=== PATIENT | female | born 1985 ===

== ENCOUNTER 2019-09-08 13:29 | Outpatient (CLI) | payer SELFPAY ==
[2019-09-08 13:57] VITALS: BP 110/71
[2019-09-08 15:09] LABS: Bacteria,Urine 1+ /HPF (Negative); Bilirubin,Urine NEG (Negative); Blood,Urine NEG (Negative); Color,Urine Yellow (Yellow); Mucus,Urine FEW /HPF; Protein,Urine <15 mg/dL mg/dL (Negative); Urobilinogen,Urine < 2.0 mg/dL (<2.0)
--- NOTE | 2019-09-08 16:20 | Event Note ---
Date: 09/08/19 Patient complains of PPROM SIMON 8.6 BPP 8/8 SSE: negative pooling no amniotic fluid on cindi pad. Cindi pad dry SVE: no amniotic fluid noted, +ve vaginal discharge cervix: closed, long. high FHT: appropriate and reassuring for gestational age plan to d/c home with fup clinic one week. Repeat US/SIMON/BPP chorio and PTL precautions given Maternal/ status reassuring Wily Rosen MD
--- NOTE | 2019-09-09 05:12 | Ultrasound Report ---
ULTRASOUND BIOPHYSICAL PROFILE ULTRASOUND OB LIMITED INDICATION: SIMON TECHNIQUE: Transabdominal ultrasound imaging. COMPARISON: None FINDINGS: breathing movement = 2 Gross body movement = 2 tone = 2 Qualitative amniotic fluid volume = 2 Total biophysical score = 8/8 Amniotic fluid index is 8.6 cm. Presentation is cephalic. heart rate is 150 beats per minute. IMPRESSION: biophysical profile equals 8/8. Signer Name: Mikhail Melgar Jr, MD Signed: 09/08/2019 3:39 PM Workstation Name: [id number]
== END 2019-09-08 16:43 | disposition home or self-care (01) ==
LOC: TRG 13:29 → APU 13:31 → TRG 16:43
PROVIDERS: ATTEND Obstetrics & Gynecology
DX: O42.913 Preterm premature rupture of membranes, unspecified as to length of time between rupture and onset of labor, third trimester (principal); Z3A.34 34 weeks gestation of pregnancy
CPT/HCPCS: 59025; 76815; 76819; 81001

== ENCOUNTER 2020-03-08 19:01 | Emergency (ER) | payer SELFPAY ==
--- NOTE | 2020-03-08 19:32 | Emergency Department Report ---
Blank Doc - Documentation Documentation: 34-year-old female that presents with upper abdominal pain with n/v. Stated is 6 weeks . Denies any vaginal bleeding. This initial assessment/diagnostic orders/clinical plan/treatment(s) is/are subject to change based on patient's health status, clinical progression and re- assessment by fellow clinical providers in the ED. Further treatment and workup at subsequent clinical providers discretion. Patient/guardians urged not to elope from the ED as their condition may be serious if not clinically assessed and managed. Initial orders include: 1- Patient sent to [facility] for further evaluation and treatment 2- labs 3- UA 4- US OB AND ABD
[2020-03-08 20:35] LABS: Alanine Aminotransferase 406 units/L (7-56); Albumin 3.8 g/dL (3.9-5); Blood Urea Nitrogen 7 mg/dL (7-17); Calcium 9.5 mg/dL (8.4-10.2); Hemolysis Index 10
[2020-03-08 20:36] LABS: Basophils % (Auto) 0.3 % (0.0-1.8); Eosinophils # (Auto) 0.1 K/mm3 (0.0-0.4); Eosinophils % (Auto) 0.7 % (0.0-4.3); Hematocrit 38.9 % (30.3-42.9); Hemoglobin 13.4 gm/dl (10.1-14.3); Lymphocytes # (Auto) 2.1 K/mm3 (1.2-5.4); Lymphocytes % (Auto) 21.9 % (13.4-35.0); Mean Corpuscular HGB Conc 35 % (30-34); Mean Corpuscular Volume 90 fl (79-97); Monocytes # (Auto) 0.4 K/mm3 (0.0-0.8); Platelet Count 231 K/mm3 (140-440); Red Blood Count 4.33 M/mm3 (3.65-5.03); Red Cell Distribution Width 14.7 % (13.2-15.2)
[2020-03-08 20:39] LABS: BUN/Creatinine Ratio 18
--- NOTE | 2020-03-08 22:20 | Ultrasound Report ---
ULTRASOUND ABDOMEN, COMPLETE INDICATION / CLINICAL INFORMATION: abd pain. COMPARISON: None available. FINDINGS: PANCREAS: Not well visualized secondary to overlying bowel gas. ABDOMINAL AORTA: No significant abnormality. IVC: No significant abnormality. LIVER: No significant abnormality. GALLBLADDER: Multiple echogenic foci are seen within the gallbladder neck. There is no significant ga llbladder wall thickening or pericholecystic edema. BILE DUCTS: No significant abnormality. Common bile duct measures 8 mm. KIDNEYS: Right: The right kidney measures 11.5 cm in length and is normal in echogenicity. Left: The left kidney measures 11.6 cm in length and is normal in echogenicity. SPLEEN: Spleen measures 10.5 cm in length and is normal in echogenicity. FREE FLUID: None. ADDITIONAL FINDINGS: None. IMPRESSION: 1. Cholelithiasis without sonographic evidence of cholecystitis. 2. Mildly dilated common bile duct. Signer Name: Clemente Davis MD Signed: 03/08/2020 10:16 PM Workstation Name: [id number]
--- NOTE | 2020-03-08 22:24 | Ultrasound Report ---
ULTRASOUND OBSTETRIC INDICATION / CLINICAL INFORMATION: abd pain. Clinical Gestational Age (GA): 10.5 weeks.days TECHNIQUE: Transabdominal. COMPARISON: None available. FINDINGS: GESTATIONAL SAC: Well-defined oval shape and intrauterine in location. Gestational sac diameter measu res 5.6 cm, corresponding to a gestational age of 11 weeks, 4 days. EMBRYO/FETUS: No significant abnormality. - [place]-Rump Length = 3.7 cm = 10.5 weeks.days - Heart Rate, beats per minute (if present) = 168 ADNEXA: Maternal ovaries were not visualized on this examination. FREE FLUID: None. ADDITIONAL FINDINGS: None. IMPRESSION: 1. Single, living intrauterine with estimated sonographic age of 11.1 weeks.days. Signer Name: Clemente Davis MD Signed: 03/08/2020 10:20 PM Workstation Name: [id number]
[2020-03-08 22:27] VITALS: BP 114/76
[2020-03-09] MEDS ORDERED: METOCLOPRAMIDE 10 MG/2 ML INJ ONE (00:59)
[2020-03-09] MEDS ORDERED: SODIUM CHLORIDE 0.9% 1000 ML 1,000 ML ONE (00:59)
[2020-03-09] MEDS ORDERED: diphenhydrAMINE 50 MG/ML VIAL ONE (00:59)
[2020-03-09] MEDS ORDERED: oxyCODONE /ACETAMINOPHEN 5-325MG TAB ONE (04:49)
[2020-03-09] MEDS ORDERED: ONDANSETRON 4 MG ODT TAB ONE (04:51)
== END 2020-03-09 05:30 | disposition home or self-care (01) ==
LOC: ED 19:01
DX: R10.9 Unspecified abdominal pain (principal); Z53.21 Procedure and treatment not carried out due to patient leaving prior to being seen by health care provider
CPT/HCPCS: 36415; 76700; 76801; 80053; 83690; 84702; 85025; J1200; J2765; J7030; Q0162